=== PATIENT | female | born 1985 | race Caucasian/White ===

== ENCOUNTER 2022-04-19 09:55 | Emergency (ER) | payer OTHER, SELFPAY ==
[2022-04-19 10:25] VITALS: BP 113/63; PULSE 109; RESP 16; TEMP 37.2; O2SAT 100
[2022-04-19 11:05] LABS: Appearance Urine Cloudy (Clear); Bilirubin Urine Negative (Negative); Blood Urine 1+ (Negative); Color Urine Yellow (Yellow); Glucose Urine UA Negative (Negative); Ketones Urine Negative (Negative); Leukocyte Esterase Ur 2+ LEU/UL (Negative); Nitrate Urine Positive (Negative); Protein Urine 2+ mg/dL (Negative); Urobilinogen Urine 0.2 mg/dL (<2.0); pH Urine 6.5 (5.0-9.0)
[2022-04-19 11:13] LABS: Budding Yeast Urine Present /hpf; Mucus Urine Rare /lpf; Squamous Epithelial Cell Urine Few /hpf (Few); WBC Urine >75 /hpf
[2022-04-19 11:15] LABS: Basophils Percent Auto 0.1 % (0.2-1.2); Hematocrit 36.1 % (37.0-47.0); Hemoglobin 11.6 g/dL (12.0-15.0); Immature Granulocyte Absolute 0.06 K/mm3 (0.00-0.031); Immature Granulocyte Percent A 0.3 % (0-0.5); Lymphocytes Absolute Auto 1.09 K/mm3 (0.9-3.2); Lymphocytes Percent Auto 5.5 % (18.3-44.2); Mean Corpuscular HGB Conc 32.1 g/dl (32-36); Mean Corpuscular Hemoglobin 26.4 pg (26-34); Mean Corpuscular Volume 82.2 fl (80-100); Mean Platelet Volume 10.1 fl (7.4-10.4); Monocytes Absolute Auto 2.5 K/mm3 (0.1-0.6); Monocytes Percent Auto 12.5 % (2.6-8.5); Neutrophils Percent Auto 81.6 % (45.5-73.1); Platelet Count Result 218 k/mm3 (150-375); Red Blood Count 4.39 M/mm3 (4.2-5.4); Red Cell Distribution Width 15.3 % (11.5-14.5); White Blood Count 19.6 K/mm3 (4.5-10.0)
[2022-04-19 11:15] LABS: Add Urine Microscopic? YES
[2022-04-19 11:23] LABS: Alanine Aminotransferase 28 U/L (6-35); Albumin Level 4.4 g/dL (3.5-5.1); Alkaline Phosphatase 89 U/L (38-126); Anion Gap 6 mmol/L (8-16); Aspartate Amino Transferase 32 U/L (14-36); Bilirubin,Total 0.7 mg/dL (0.2-1.3); Blood Urea Nitrogen 12 mg/dL (7-17); Carbon Dioxide 31 mmol/L (22-30); Chloride 98 mmol/L (98-107); Estimated CRCL calculation 76 ml/min; Estimated Glomerular Filt Rate > 60; Glucose 109 mg/dL (65-110); Lipase 20 U/L (23-300); Potassium 3.5 mmol/L (3.4-5.0); Sodium 135 mmol/L (137-145)
--- NOTE | 2022-04-19 11:24 | ED.ABDPAIN ---
HPI - Abdominal Pain General Chief Complaint: Abdominal Pain Stated Complaint: R sided rib pain, no injury/trauma Time Seen by Provider: 04/19/22 11:00 History of Present Illness HPI narrative: 36-year-old female presented to the emergency department for evaluation of right flank pain and burning with urination. Patient states that the symptoms started yesterday and have progressed throughout the day today. Patient describes having subjective fever overnight. Patient denies any associated nausea vomiting or diarrhea. Patient denies any chest pain or shortness of breath. Patient states she does have a history of urinary tract infections. Patient reports in 2015 she was diagnosed with kidney failure but did not have follow-up until 2019 when she needed to be admitted for kidney issues . She states that she was hospitalized but had to leave [facility] and has not yet had follow up in since 2019. Related Data Allergies Allergy/AdvReac Type Severity Reaction Status Date / Time No Known Allergies Allergy Mild Unverified 09/06/06 18:40 Review of Systems Review of Systems: CONSTITUTIONAL: Denies fever, chills, or sweats. EYES: Denies visual changes, redness, or discharge. ENT: Denies rhinorrhea, congestion, sore throat, or otalgia. CARDIOVASCULAR: Denies chest pain, palpitations, or edema. RESPIRATORY: Denies cough or dyspnea. GASTROINTESTINAL: See HPI GENITOURINARY: See HPI SKIN: Denies rash or itching. MUSCULOSKELETAL: Denies back pain, joint pain, or myalgia. NEUROLOGIC: Denies headache, numbness, or weakness. Exam Narrative: APPEARANCE: Well appearing, no pain, no distress, well-nourished. HEAD: normocephalic, atraumatic. EYES: PERRLA/EOMI, conjunctivae clear. NOSE: Normal no drainage NECK: Supple. No adenopathy, no masses. RESPIRATORY: Airway patent, respirations nonlabored. Clear to auscultation bilaterally, no rales, rhonchi, wheezing. CARDIOVASCULAR: Regular rate and rhythm without murmurs rubs or gallops. ABDOMINAL: Right sided and suprapubic tenderness to palpation. Right CVA tenderness to palpation. MUSCULOSKELETAL: Moves all extremities. Strength/ROM intact, No edema, No calf tenderness. NEURO: Alert. Cranial nerves II through XII intact. Grossly intact SKIN: Warm, dry. Normal Color Course Course Emergency Course: Patient was treated for urinary tract infection with Rocephin. Urine culture is pending. Patient does have a leukocytosis of 19.6. Kidney function is within normal limits. Creatinine is 0.7. Patient does feel improved with treatment. Patient was encouraged to have close follow-up with her primary care physician. All questions concerns were addressed. Patient denies any associated nausea or vomiting. Patient tolerating p.o. Patient is afebrile suitable for discharge to home. Patient was educated on reasons to return to the emerge department. Vital Signs Vital signs: Vital Signs Temperature 99.0 F 04/19/22 10:25 Pulse Rate 109 H 04/19/22 10:25 Respiratory Rate 16 04/19/22 10:25 Blood Pressure 113/63 04/19/22 10:25 Pulse Oximetry 100 04/19/22 10:25 Oxygen Delivery Room Air 04/19/22 10:25 Temperature 99.0 F 04/19/22 10:25 Pulse Rate 87 04/19/22 12:48 Respiratory Rate 18 04/19/22 12:48 Blood Pressure 104/58 L 04/19/22 12:48 Pulse Oximetry 98 04/19/22 12:48 Oxygen Delivery Room Air 04/19/22 10:25 MDM - Abdominal Pain Lab Data Attestation: I reviewed the patient's lab results. Result diagrams: 04/19/22 11:01 04/19/22 11:01 Labs: Lab Results 04/19/22 04/19/22 04/19/22 Range/Units 11:00 11:01 11:01 WBC 19.6 H (4.5-10.0) K/mm3 RBC 4.39 (4.2-5.4) M/mm3 Hgb 11.6 L (12.0-15.0) g/dL Hct 36.1 L (37.0-47.0) % MCV 82.2 (80-100) fl MCH 26.4 (26-34) pg MCHC 32.1 (32-36) g/dl RDW 15.3 H (11.5-14.5) % Plt Count 218 (150-375) k/mm3 MPV 10.1 (7.4-10.4) fl Immature Gran % (Auto)
[2022-04-19] MEDS: SODIUM CHLORIDE 0.9% IV 1,000 ML 999 ML IV CONT (11:46)
[2022-04-19] MEDS: MORPHINE SULFATE (*CRX) 4 MG/ML INJ IV PUSH (11:47)
[2022-04-19] MEDS: PHENAZOPYRIDINE HCL 100 MG TABLET 200 MG PO (12:47)
[2022-04-19 12:48] VITALS: BP 104/58; PULSE 87; RESP 18; O2SAT 98
== END 2022-04-19 13:15 | disposition home or self-care (01) ==
PROVIDERS: Emergency Medicine; Emergency Provider Emergency Medicine
DX: N39.0 Urinary tract infection, site not specified (principal); Z87.440 Personal history of urinary (tract) infections
CPT/HCPCS: 36415; 80053; 81001; 81025; 83690; 85025; 87077; 87086; 87186; 96365; 96375; 99284; A9270; J0696; J2270; J7030

== ENCOUNTER 2022-05-26 07:46 | Emergency (ER) | payer OTHER, SELFPAY ==
--- NOTE | ~2022-05-26 | CT_ITS ---
EXAMINATION: CT abdomen pelvis w con DATE: 05/26/2022 10:13 INDICATION: Abdominal pain TECHNIQUE: Computed tomography (CT) of the abdomen and pelvis was performed with 100 CC Omnipaque 300 intravenous contrast. Automated exposure control and iterative reconstruction technique were employe d. Exam dose: 209.12 mGy-cm total exam DLP. COMPARISON: None. FINDINGS: The lung bases are clear. Normal heart size. No pericardial or pleural effusion. The gallbladder is present. No gallbladder wall thickening or pericholecystic fluid or fat stranding. No bile duct dilatation is noted. No hepatic, splenic, pancreatic space-occupying mass lesion or graf creatic duct dilatation. Normal morphology of the adrenal glands. 7 mm left renal cyst. No other renal space-occupying mass lesion is noted. There is subtle diminished enhancement in the lateral upper aspect of the right kidney; consider pyel onephritis. No urinary tract calculus or hydroureteronephrosis. The urinary bladder is evacuated. The appendix is dilated up to 1.3 cm, with thickening of the wall and periappendiceal fat stranding, consistent with acute appendicitis. There is a prominent amount of fecal material within the colon. No bowel obstruction or intraperitone al free air is detected. Retroverted uterus. There is moderately fluid in the adnexal areas and posterior cul-de-sac. There is an up to 1.2 cm dilated tubular structure, primarily the right fallopian tube consistent with hydros alpinx. Peripherally enhancing 12 x 19 mm probable involuting right ovarian cyst. 1.7 x 1.9 cm left ovarian cyst. Normal caliber of the abdominal aorta. No intraperitoneal or retroperitoneal or pelvic mass lesion or adenopathy is noted. Included skeletal structures are unremarkable. IMPRESSION: Acute appendicitis Right hydrosalpinx. Bilateral ovarian cysts Moderate free fluid in the adnexal areas and posterior cul-de-sac Possible mild pyelonephritis upper pole of right kidney 7 mm left renal cyst Retroverted uterus Reviewed, dictated and finalized at [facility]. Reviewed, dictated and finalized at [facility].
[2022-05-26 07:57] VITALS: BP 140/80; PULSE 63; RESP 20; TEMP 36.7; O2SAT 98
--- NOTE | 2022-05-26 08:05 | PC.NURSE ---
attempted to stick pt. for iv. unsuccessful.
--- NOTE | 2022-05-26 08:42 | ED.ABDPAIN ---
HPI - Abdominal Pain General Chief Complaint: Abdominal Pain Stated Complaint: abdominal pain Time Seen by Provider: 05/26/22 08:39 Source: patient and RN notes reviewed Mode of arrival: ambulatory Limitations: no limitations History of Present Illness HPI narrative: 36 years old white female came from home with her boyfriend complaining of generalized, diffuse abdominal pain started last night, constant associated with nausea, she denies any fever, chills, vomiting, diarrhea, constipation, vaginal bleeding or discharge, any history of abdominal surgery in the past, positive smoking, does not drink or uses drugs. Related Data Allergies Allergy/AdvReac Type Severity Reaction Status Date / Time No Known Allergies Allergy Mild Unverified 09/06/06 18:40 Review of Systems Review of Systems: All systems reviewed & are unremarkable except as noted in HPI and below Exam Narrative: General appearance: Well-developed, well-nourished, looks ill, toxic, lethargic Skin: Normal color Head: Normocephalic, nontraumatic Eyes: Clear conjunctiva ENT: Oropharynx normal, ears normal, nose normal Neck: Supple, nontender Chest and respiratory: Airway patent, no respiratory distress, no accessory muscle use Heart: Regular rate/rhythm Abdomen: Rigid, diffuse abdominal tenderness, positive guarding, no organomegaly, quiet bowel sounds Vascular: Normal peripheral pulses, normal capillary refill. Musculoskeletal: Normal range of motion, nontender back Neurologic: Alert and oriented ?3, EQUALIZER OPERATOR is normal as tested, no gross motor deficit Course Course Emergency Course: PID, pyelonephritis my concern. Patient looks sick, toxic, IV CEFOTETAN to 10, oral doxycycline ordered Consultations Consultation #1: Dr. Harden Date: 05/26/22 Time: 11:35 Time: 11:35 Vital Signs Vital signs: Vital Signs Temperature 36.7 C 05/26/22 07:57 Pulse Rate 63 05/26/22 07:57 Respiratory Rate 20 05/26/22 07:57 Blood Pressure 140/80 05/26/22 07:57 Pulse Oximetry 98 05/26/22 07:57 Temperature 36.7 C 05/26/22 07:57 Pulse Rate 89 05/26/22 10:45 Respiratory Rate 19 05/26/22 10:45 Blood Pressure 106/85 05/26/22 10:45 Pulse Oximetry 99 05/26/22 10:45 MDM - Abdominal Pain Differential Diagnosis Differential diagnosis: Likely abdominal pain, acute appendicitis, calculus of kidney, constipation, diverticulitis and pancreatitis Lab Data Result diagrams: 05/26/22 08:51 05/26/22 08:51 Labs: Lab Results 05/26/22 05/26/22 05/26/22 Range/Units 08:51 08:51 09:49 WBC 17.0 H (4.5-10.0) K/mm3 RBC 4.65 (4.2-5.4) M/mm3 Hgb 12.2 (12.0-15.0) g/dL Hct 38.7 (37.0-47.0) % MCV 83.2 (80-100) fl MCH 26.2 (26-34) pg MCHC 31.5 L (32-36) g/dl RDW 15.7 H (11.5-14.5) % Plt Count 208 (150-375) k/mm3 MPV 9.8 (7.4-10.4) fl Immature Gran % (Auto) 0.4 (0-0.5) % Neut % (Auto) 87.1 H (45.5-73.1) % Lymph % (Auto) 4.8 L (18.3-44.2) % Bland % (Auto) 7.3 (2.6-8.5) % Eos % (Auto) 0.1 (0-4.4) % Baso % (Auto) 0.3 (0.2-1.2) % Lymph # (Auto) 0.81 L (0.9-3.2) K/mm3 Bland # (Auto) 1.3 H (0.1-0.6) K/mm3 Eos # (Auto) 0.0 (0-0.3) K/mm3 Baso # (Auto) 0.1 (0.0-0.1) K/mm3 Abs Immat Gran (auto) 0.06 H (0.00-0.031) K/mm3 Absolute Neuts (auto) 14.9 H (1.3-6.7) K/mm3 Absolute Nucleated RBC 0.0 (0.0-0.012) K/mm3 Nucleated RBC % 0.0 (0.0-0.2) % Sodium 133 L (137-145) mmol/L Potassium 4.2 (3.4-5.0) mmol/L Chloride 104 (98-107) mmol/L Carbon Dioxide 26 (22-30) mmol/L Anion Gap 3 L (8-16) mmol/L BUN 10 (7-17) mg/dL Creatin
[2022-05-26 08:57] LABS: Basophils Absolute Auto 0.1 K/mm3 (0.0-0.1); Basophils Percent Auto 0.3 % (0.2-1.2); Eosinophils Percent Auto 0.1 % (0-4.4); Hematocrit 38.7 % (37.0-47.0); Hemoglobin 12.2 g/dL (12.0-15.0); Immature Granulocyte Absolute 0.06 K/mm3 (0.00-0.031); Immature Granulocyte Percent A 0.4 % (0-0.5); Lymphocytes Absolute Auto 0.81 K/mm3 (0.9-3.2); Lymphocytes Percent Auto 4.8 % (18.3-44.2); Mean Corpuscular HGB Conc 31.5 g/dl (32-36); Mean Corpuscular Hemoglobin 26.2 pg (26-34); Mean Corpuscular Volume 83.2 fl (80-100); Mean Platelet Volume 9.8 fl (7.4-10.4); Monocytes Absolute Auto 1.3 K/mm3 (0.1-0.6); Monocytes Percent Auto 7.3 % (2.6-8.5); Neutrophils Absolute Auto 14.9 K/mm3 (1.3-6.7); Neutrophils Percent Auto 87.1 % (45.5-73.1); Platelet Count Result 208 k/mm3 (150-375); Red Blood Count 4.65 M/mm3 (4.2-5.4); Red Cell Distribution Width 15.7 % (11.5-14.5)
[2022-05-26 09:17] LABS: Alanine Aminotransferase 30 U/L (6-35); Albumin Level 4.1 g/dL (3.5-5.1); Alkaline Phosphatase 89 U/L (38-126); Anion Gap 3 mmol/L (8-16); Aspartate Amino Transferase 44 U/L (14-36); Bilirubin,Total 0.7 mg/dL (0.2-1.3); Blood Urea Nitrogen 10 mg/dL (7-17); Calcium 8.7 mg/dL (8.4-10.2); Carbon Dioxide 26 mmol/L (22-30); Chloride 104 mmol/L (98-107); Estimated CRCL calculation 112 ml/min; Estimated Glomerular Filt Rate > 60; Glucose 122 mg/dL (65-110); Lipase 15 U/L (23-300); Potassium 4.2 mmol/L (3.4-5.0); Sodium 133 mmol/L (137-145)
[2022-05-26 09:35] VITALS: BP 130/80; PULSE 66; RESP 14; O2SAT 100
[2022-05-26 09:57] LABS: Add Urine Microscopic? YES; Appearance Urine Slightly Cloudy (Clear); Bilirubin Urine Negative (Negative); Blood Urine Negative (Negative); Color Urine Yellow (Yellow); Glucose Urine UA Negative (Negative); Ketones Urine 2+ mg/dL (Negative); Leukocyte Esterase Ur Trace LEU/UL (Negative); Nitrate Urine Positive (Negative); Protein Urine Trace mg/dL (Negative); pH Urine 8.5 (5.0-9.0)
[2022-05-26] MEDS: SODIUM CHLORIDE 0.9% IV 1,000 ML 999 ML IV CONT (10:00)
[2022-05-26 10:02] LABS: Bacteria Urine Trace /hpf; Mucus Urine Rare /lpf; RBC Urine 0-2 /hpf (0-2); Squamous Epithelial Cell Urine Few /hpf (Few)
--- NOTE | 2022-05-26 10:42 | PC.NURSE ---
pt. requesting std checks. erp made aware.
[2022-05-26 10:45] VITALS: BP 106/85; PULSE 89; RESP 19; O2SAT 99
[2022-05-26 11:02] VITALS: PULSE 69; RESP 13
--- NOTE | 2022-05-26 11:45 | PC.NURSE ---
Pt seen ambulating out of [facility] bay at this time. RN able to stop pt and remove her iv. ERP dr. Lizama aware.
--- NOTE | 2022-05-26 12:05 | PC.NURSE ---
1105- Pt admittedly requesting to use phone, pt escorted to phone. Informed patient that if desiring to leave ED, will need to sign AMA forms and IV needs to be discontinued. 1110- Pt states she will not be able to stay and persistently requesting to use phone. Dr. Lizama notified that pt desiring to leave. 1125- Dr. Lizama at bedside, discussed pt recommendation to stay for IV antibiotics, risk for worsening condition and possible , pt states she is not leaving, did not want to sign AMA forms. 1140- Pt requesting to look in [facility] for car, walked to ambulance bay door [facility]. Pt states she does not want to leave but would like [facility]. Informed pt if desiring to leave ED, will need to remove IV and sign AMA form. Pt became verbally aggressive and demanded to go into ambulance bay. Pt followed to ambulance bay and IV discontinued. Dr. Lizama notified, Dr. Lizama to [facility] for recommendation to stay in ED and be treated, pt found to have appendicitis and requires surgical intervention for conidition. Pt aware of risk. Pt discharged from care to [facility].
== END 2022-05-26 12:10 | disposition left against medical advice (07) ==
PROVIDERS: Emergency Provider Emergency Medicine
DX: N12 Tubulo-interstitial nephritis, not specified as acute or chronic (principal); N73.0 Acute parametritis and pelvic cellulitis; N83.202 Unspecified ovarian cyst, left side; N83.201 Unspecified ovarian cyst, right side; K35.80 Unspecified acute appendicitis
CPT/HCPCS: 36415; 74177; 80053; 81001; 81025; 83690; 85025; 87077; 87086; 87088; 87186; 96360; 99284; J7030; Q9967

== ENCOUNTER 2022-05-26 12:36 | Observation (INO) | payer OTHER, SELFPAY ==
[2022-05-26] VITALS (14 sets, daily range): BP systolic 82–110; BP diastolic 52–70; PULSE 50–95; RESP 14–22; TEMP 36.1–36.8; O2SAT 95–100; BMI 22.3
--- NOTE | 2022-05-26 12:40 | ED.ABDPAIN ---
HPI - Abdominal Pain General Chief Complaint: Abdominal Pain Stated Complaint: abdominal pain Time Seen by Provider: 05/26/22 12:40 Related Data Allergies Allergy/AdvReac Type Severity Reaction Status Date / Time No Known Allergies Allergy Mild Unverified 09/06/06 18:40 Discharge Plan Discharge Instructions: Antibiotic Form Prescriptions: No Action cephalexin 250 mg capsule 250 mg PO Q6H 7 Days Qty: 28 0RF phenazopyridine [Pyridium] 100 mg tablet 100 mg PO TID PRN (Reason: pain) Qty: 6 0RF Follow-up/Referrals: PHYSICIAN,FRAME OPENER [Primary Care Provider] -
--- NOTE | 2022-05-26 12:44 | ED.ABDPAIN ---
HPI - Abdominal Pain General Chief Complaint: Abdominal Pain Stated Complaint: abdominal pain Time Seen by Provider: 05/26/22 12:40 Source: patient Mode of arrival: ambulatory Limitations: no limitations History of Present Illness HPI narrative: 36 years old white female was seen by me earlier and left AMA with a diagnosis of acute appendicitis, pyelonephritis and possible PID. Patient is back because her pain got worse. Last meal was last night. Related Data Allergies Allergy/AdvReac Type Severity Reaction Status Date / Time No Known Allergies Allergy Mild Verified 05/26/22 14:30 Review of Systems Review of Systems: All systems reviewed & are unremarkable except as noted in HPI and below PMFSH Social History Social History Smoking packs per day: 1 Smoking cigarettes per day: 20.0 Years smoked: 15 Smoking pack-years: 15.00 Smoking status: Current every day smoker Tobacco type: cigarettes Gender identity (if verbalized by the patient): Female Sexual Orientation (if Verbalized by the Patient): Straight or Heterosexual Spiritual care concerns: No Exam Narrative: General appearance: Well-developed, well-nourished, very L Skin: Normal color Head: Normocephalic, nontraumatic Eyes: Clear conjunctiva ENT: Oropharynx normal, ears normal, nose normal Neck: Supple, nontender Chest and respiratory: Airway patent, no respiratory distress, no accessory muscle use Heart: Regular rate/rhythm Abdomen: Severe diffuse tenderness mainly right lower quadrant with guarding and rebound, no organomegaly, quiet bowel sounds Vascular: Normal peripheral pulses, normal capillary refill. Musculoskeletal: Normal range of motion, nontender back Neurologic: Alert and oriented ?3, PHOTOGRAPHIC ENLARGER OPERATOR is normal as tested, no gross motor deficit Course Course Emergency Course: Admit to surgery, appendicitis. Consultations Consultation #1: Dr. Troncoso Admit to hospitalist because of the pyelonephritis Date: 05/26/22 Time: 13:14 Vital Signs Vital signs: Vital Signs Temperature 36.8 C 05/26/22 13:05 Pulse Rate 95 05/26/22 13:05 Respiratory Rate 15 05/26/22 13:05 Blood Pressure 103/63 05/26/22 13:05 Pulse Oximetry 96 05/26/22 13:05 Oxygen Delivery Room Air 05/26/22 13:05 Temperature 36.4 C 05/26/22 18:51 Pulse Rate 53 L 05/26/22 18:51 Respiratory Rate 16 05/26/22 18:51 Blood Pressure 95/56 L 05/26/22 18:51 Pulse Oximetry 99 05/26/22 18:51 Oxygen Delivery Room Air 05/26/22 16:50 Oxygen Flow Rate 8 05/26/22 16:20 MDM - Abdominal Pain Differential Diagnosis Differential diagnosis: Likely acute appendicitis Critical Care Time Critical Care Time Critical Care Time: Yes Total Critical Care Time: 30 Discharge Plan Discharge Clinical Impression: Pyelonephritis, Acute pelvic inflammatory disease (PID), Acute appendicitis, Ovarian cyst, Hydrosalpinx Patient Disposition: Still a Patient Condition: Stable
--- NOTE | 2022-05-26 13:28 | WPDANESEPPF ---
Anes - Initial Pre Proc Eval Procedure: Operation Date: 05/26/22 14:30 Proposed Procedures p Laparoscopic Appendectomy - Ollie Troncoso MD Date/Time: 05/26/22 13:28 Surgeon: Ollie Troncoso MD Pre Op Diagnosis: abdominal pain Patient Data Age: 36 Gender: F Height: 1.63 m Weight: 59 kg Last Vital Signs Temp 36.8 C 05/26/22 13:05 Pulse 95 05/26/22 13:05 Resp 15 05/26/22 13:05 BP 103/63 05/26/22 13:05 Pulse Ox 96 05/26/22 13:05 O2 Del Method Room Air 05/26/22 13:05 Allergies Allergy/AdvReac Type Severity Reaction Status Date / Time No Known Allergies Allergy Mild Verified 05/26/22 13:10 Home Medications Medication Instructions Recorded Confirmed Type cephalexin 250 mg capsule 250 mg PO Q6H 7 days #28 caps 04/19/22 Rx phenazopyridine 100 mg tablet 100 mg PO TID PRN pain 6 doses #6 04/19/22 Rx (Pyridium) tabs Other studies: EXAMINATION: CT abdomen pelvis w con DATE: 05/26/2022 10:13 INDICATION: Abdominal pain TECHNIQUE: Computed tomography (CT) of the abdomen and pelvis was performed with 100 CC Omnipaque 300 intravenous contrast. Automated exposure control and iterative reconstruction technique were employed. Exam dose:? 209.12 mGy-cm total exam DLP.? COMPARISON: None. FINDINGS: The lung bases are clear. Normal heart size. No pericardial or pleural effusion. The gallbladder is present. No gallbladder wall thickening or pericholecystic fluid or fat stranding. No bile duct dilatation is noted. No hepatic, splenic, pancreatic space-occupying mass lesion or pancreatic duct dilatation. Normal morphology of the adrenal glands. 7 mm left renal cyst. No other renal space-occupying mass lesion is noted. There is subtle diminished enhancement in the lateral upper aspect of the right kidney; consider pyelonephritis. No urinary tract calculus or hydroureteronephrosis. The urinary bladder is evacuated. The appendix is dilated up to 1.3 cm, with thickening of the wall and periappendiceal fat stranding, consistent with acute appendicitis. There is a prominent amount of fecal material within the colon. No bowel obstruction or intraperitoneal free air is detected. Retroverted uterus. There is moderately fluid in the adnexal areas and posterior cul-de-sac. There is an up to 1.2 cm dilated tubular structure, primarily the right fallopian tube consistent with hydrosalpinx. Peripherally enhancing 12 x 19 mm probable involuting right ovarian cyst. 1.7 x 1.9 cm left ovarian cyst. Normal caliber of the abdominal aorta. No intraperitoneal or retroperitoneal or pelvic mass lesion or adenopathy is noted. Included skeletal structures are unremarkable. IMPRESSION:? Acute appendicitis Patient hx anesthesia problems: none Family hx anesthesia problems: none Results Review: All pre-operative results and documents have been reviewed as part of the pre-operative evaluation. Anes - Eval Final PreProcedure Day of Procedure 05/26/22 13:28 Patient weight: normal Heart: regular rate and rhythm Lungs: clear to auscultation and normal air movement Airway: Mallampati scale class II Neurological: alert and oriented Last oral intake: >/= 8 hours ASA classification: II Emergent: no Anesthetic plan: proceed Anesthesia type and monitoring: general ETT Results Review: All pre-operative results and documents have been reviewed as part of the pre-operative evaluation. Informed Consent: The patient's anesthetic plan and its attendant risks and benefits were discussed with the patient/family/POA. Questions were solicited and answers provided to the satisfaction of the patient/family/POA.
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
--- NOTE | 2022-05-26 13:56 | WPDHPUPDATE1 ---
History and Physical Update Update Date/Time: 05/26/22 13:56 History and Physical has been reviewed, including an updated exam of the patient. There are NO changes in the patient's condition. Risks, benefits, and alternatives have been discussed and questions answered. Patient agrees to proceed with procedure.
--- NOTE | 2022-05-26 13:57 | PM.CNGS ---
Assessment and Plan Assessment and plan (1) Acute appendicitis: Code(s): K35.80 - Unspecified acute appendicitis Status: Acute Assessment and Plan: Seems to be a mixed picture with more than 1 thing going on but patient is definitely tender in the right lower quadrant with CT scan evidence of acute appendicitis. Will proceed with laparoscopic appendectomy. The procedure the risks the benefits have been discussed with the patient. She will be admitted after surgery for treatment of pyelonephritis and possibly PID. All questions were answered. She understands and agrees to go ahead. (2) Pyelonephritis: Code(s): N12 - Tubulo-interstitial nephritis, not specified as acute or chronic Status: Acute Assessment and Plan: Noted on CT scan and patient does have trace bacteria with a few white cells in her urine. Management per hospitalist service. (3) Acute pelvic inflammatory disease (PID): Code(s): N73.0 - Acute parametritis and pelvic cellulitis Status: Acute Assessment and Plan: Right hydrosalpinx on CT scan. Could be secondary to adjacent appendiceal inflammation or could also have PID. Will be on antibiotics postop History of Present Illness Consult details Consult date: 05/26/22 Reason for consult: abdominal pain Requesting physician: Charles Lizama MD Narrative: Patient is a 36-year-old woman who came to the emergency room this morning complaining of diffuse abdominal pain that started last night about 6:00. The pain since moved to the lower abdomen, both sides. In the ER, [place] [id number] and was diffusely tender with guarding. She had a CT scan which showed acute appendicitis. There was also a concern regarding pelvic inflammatory disease as well as pyelonephritis. Patient then left AMA but came back in just a couple of hours as she was continuing to have pain. She is most tender in RLQ and very uncomfortable. Last menses was 1 week ago. She is now taken to surgery for laparoscopic appendectomy for acute appendicitis. Review of Systems Review of Systems: All systems reviewed & are unremarkable except as noted in HPI and below (HPI) Constitutional: Constitutional: Denies body ache(s), Denies chills, Reports fatigue, Denies fever(s) and Reports poor appetite Cardiovascular: Cardiovascular: Denies chest pain, Denies diaphoresis, Denies dyspnea and Denies paroxysmal nocturnal dyspnea Respiratory: Respiratory: Denies chest congestion, Denies cough and Denies dyspnea Gastrointestinal: Gastrointestinal: Reports as per HPI, Reports abdominal pain and Reports nausea Genitourinary: Genitourinary: Reports pelvic pain Comments: Patient had similar pain when she was in the emergency room in early April. This did resolve but then came back again last evening. Integumentary/Breasts: Skin/Breast: Denies lesions and Denies rash Meds Home Medications and Allergies Home Medications Medication Instructions Recorded Confirmed Type cephalexin 250 mg capsule 250 mg PO Q6H 7 days #28 caps 04/19/22 Rx phenazopyridine 100 mg tablet 100 mg PO TID PRN pain 6 doses #6 04/19/22 Rx (Pyridium) tabs Allergies Allergy/AdvReac Type Severity Reaction Status Date / Time No Known Allergies Allergy Mild Verified 05/26/22 14:30 Vital Signs Vital Signs - 24 hr 05/26/22 13:05 05/26/22 13:39 Temperature 36.8 C Pulse Rate 95 85 Respiratory Rate 15 16 Blood Pressure 103/63 103/67 Pulse Oximetry 96 100 Oxygen Delivery Room Air Exam Const: General: cooperative, no acute distress, awake, anxious, ill appearing, tired appearing and uncomfortable Nutritional Appearance: thin Other: Closes eyes intermittently like she is trying to think of something or possibly about to fall asleep HENMT: Head: normocephalic and atraumatic Mouth: Yes Normal oral and palatal mucosa present Eyes: Conjunctivae: conjunctivae normal Pupils: Equal, round and
[2022-05-26] MEDS: LACTATED RINGERS 1,000 ML 30 ML IV CONT (14:00)
[2022-05-26] MEDS: ceFAZolin 2 GM/D5W 50 ML 2 GM/50 ML BAG IVPB (14:24)
--- NOTE | 2022-05-26 14:35 | SUR.PREOP ---
1333- PT CAME FROM ED ON STRETCHER. PT VERY DROWSY, FALLING ALSLEEP WHILE TALKING. ONLY GIVEN IV TYLENOL IN ED. PT DENIES TAKING ANY OTHER MEDICATIONS TODAY. PT ABLE TO GET UP TO RESTROOM X 1 ASSIST. PT BOYFRIEND UPDATED BY PHONE. PT LEFT HAND, FOOT AND EYELID HAS SWELLING. PT STATED IT HAS BEEN LIKE THIS ON AND OFF. SHE WAS NOT SURE WHAT CAUSED IT. VERY MILD SWELLING IN IN RIGHT HAND. ALL JEWELRY REMOVED AND PLACED IN PURSE. RIGHT FA PIV PATENT. SITE FREE OF REDNESS OR SWELLING. PT STATED SHE WAS DX WITH A UTI OVER A MONTH AGO AND WAS PLACED ON ANTIBIOTICS. REPORT GIVEN TO OR STAFF AND MEAT COUNTER CLERK.
[2022-05-26] MEDS: BUPIVACAINE/EPINEPHRINE 0.25% 50 ML VIAL 30 ML INFILTRATE (14:49)
--- NOTE | 2022-05-26 15:29 | W.PM.PROC2 ---
Procedure Note - Detailed Date of Procedure 05/26/22 Pre-op Diagnosis Acute appendicitis Post-op Diagnosis Other (Acute appendicitis, bilateral hydrosalpinx, endometriosis) Procedure Performed Laparoscopic appendectomy Surgeon Ollie Troncoso MD Medical Billing And Coding Specialist [facility] Anesthesia General and Local (0.25% bupivacaine with epinephrine) Indications Patient presented to the emergency room with diffuse abdominal pain that started last night. She has had nausea with this as well. She is noted to have tenderness in the right lower quadrant. Her white blood cell count was elevated. CT scan showed acute appendicitis. It also showed possible pyelonephritis and right hydrosalpinx possibly PID. She is taken to surgery at this time for acute appendicitis. Findings Appendix was acutely inflamed but was not ruptured. There was right hydrosalpinx and to a lesser degree left hydrosalpinx. There were several endometrial implants in the pelvis. Multiple pictures were taken to document these findings. Please see the hard copy record. Description of Procedure Patient was taken to surgery and induced into general anesthesia. The abdomen is prepped and draped. Trocars were placed in usual fashion using 0.25% Marcaine with epinephrine and applied Medical optical trocars. 5 mm camera was used. Patient was placed in Trendelenburg with the right-side elevated. The appendix was found fairly easily. I brought the small bowel and sigmoid colon out of the pelvis. Right hydrosalpinx was easily seen. There were 2 endometrial implants in the area as well. A photograph of this was taken. A photograph of the appendix was taken. We then mobilized the appendix and began dissection in the mesoappendix. This was very edematous. Dissection was carried out and the appendiceal artery was found. It was dissected out as well. Appendiceal artery was then thoroughly cauterized and divided. We continued dissecting the mesoappendix and the base of the appendix free. The base the appendix was skeletonized by dividing the mesoappendix. A Vicryl endoloop was then used to ligate the appendix at its base. The appendix was amputated just above the ligature. The mucosa of the appendiceal stump was cauterized. The appendix was placed immediately in an Endo-Catch bag. It was extricated through the 10 11 left lower quadrant trocar site. We replaced the trocar and then reviewed the right lower quadrant. Suctioning of any residual blood and fluid was carried out. Some irrigation was carried out. All looked good with no evidence of bleeding or other problems. I then looked at the left tube. This appeared to have hydrosalpinx as well. A photograph of this was taken. On the left side of the uterus there was a fairly large area of endometriosis. This was also photographed. I again looked at the right tube and found the right ovary. It did appear to have a cyst associated with it. This was also photographed. I suction down any residual cloudy fluid in the pelvis. All looked good. We evacuated CO2 and removed the trocar sleeves. Skin wounds were closed with subcuticular 4-0 Monocryl skin suture. The wounds were dressed with Exofin surgical adhesive. Patient was awakened and taken to recovery in good condition. Sponge and needle counts were correct x2. Estimated Blood Loss -5 Drains No Packing No Pathology Yes (Appendix) Complications No immediate complications Condition Stable Disposition PACU [facility] Billing Surgery - Charge Forward: Surgery Billing (Laparoscopic appendectomy)
--- NOTE | 2022-05-26 17:55 | ADMGEN ---
This patient, Pina Jackman, was admitted to [facility] Surg Room 328-01 at 1715. Patient/family oriented to hospital policies and general routines including ID bracelet, bed and alarms, visiting hours, pain management, procedures, bathroom and other care routines, personal items, smoking policy, room service/diet, and visiting hours. Information on how to activate the Rapid Response Team has been discussed. Patient/Family are encouraged to report perceived risks to care and to ask questions if they do not understand what they are told or what they should do.
[2022-05-26] MEDS: LACTATED RINGERS 1,000 ML 80 ML IV CONT (18:17)
[2022-05-26] MEDS: DOXYCYCLINE 100 MG/NS 100 ML 100 MG/100 ML BAG IVPB (18:17)
--- NOTE | 2022-05-26 20:05 | PC.NURSE ---
Pt is alert and oriented x 3, capable of making her own decisions, and she called this nurse into her room. She wants to leave the hospital tonight, because she has 2 children at home alone, aged 15 and 10. She requested antibiotics to take with her. SUSIE Bose called the surgeon and provider both and they agreed that she should be kept to get medication; however, they will call antibiotics to her pharmacy for her pyelonephritis condition. Patient was educated at length by this nurse as well as Sparkle Mckenzie, Senior Security Architect about taking the antibiotics as instructed, as well as her need to return to the ER, should she encounter any complications. She was further instructed to follow up with her regular provider in a week. Pt agreed that she understood all instructions from both of us. I removed her IV access, and she has called a ride to pick her up. When that person arrives, we will take her out to meet them.
--- NOTE | 2022-05-26 21:00 | PC.NURSE ---
Pt left AMA at 2049
--- NOTE | 2022-06-28 19:59 | PM.EVENT ---
Event Note Event Note Event Note: I was informed that patient wanted to leave the hospital in view that patient had decision making capacity and did not represent a threat to self or others and has the right to leave the hospital however was AMA,antibiotics were called for the patient to picker packer at her pharmacy. I was not in charge of the care for this patient and never met with her.
== END 2022-05-26 20:50 | disposition left against medical advice (07) ==
LOC: ANHED 13:19 → ANHSURGERY 13:24 → ANH3MEDSUR 14:48
PROVIDERS: Admitting Provider Surgery; Emergency Provider Emergency Medicine; Visit Provider Surgery
PROC: 0DTJ4ZZ Resection of Appendix, Percutaneous Endoscopic Approach (ICD-10-PCS; CPT 44970; principal; 2022-05-26 14:30)
DX: K35.80 Unspecified acute appendicitis (principal); N70.11 Chronic salpingitis; N80.3 Endometriosis of pelvic peritoneum; R10.9 Unspecified abdominal pain; N12 Tubulo-interstitial nephritis, not specified as acute or chronic; N73.0 Acute parametritis and pelvic cellulitis; N83.209 Unspecified ovarian cyst, unspecified side; D72.829 Elevated white blood cell count, unspecified; F17.210 Nicotine dependence, cigarettes, uncomplicated; Z79.899 Other long term (current) drug therapy
CPT/HCPCS: 44970; 36415; 74177; 80053; 81001; 81025; 83690; 85025; 87077; 87086; 87088; 87186; 88304; 96360; 96374; 99284; 99285; J0131; J0330; J0690; J1100; J2250; J2405; J2704; J2710; J3010; J7030; J7120; Q9967

== ENCOUNTER 2025-02-09 01:32 | Emergency (ER) | payer OTHER, SELFPAY ==
[2025-02-09 01:33] VITALS: BP 113/57; PULSE 99; RESP 18; TEMP 37.2; O2SAT 99
--- OUTSIDE RECORDS SUMMARY | 2025-02-09 01:34 | XMS_ITS | Clinical Summary ---
Author Organization [facility] Address [address] [place] [id number] Care Team Providers Care Dancing Master Name Role Phone Unavailable Primary Care Provider Unavailabl e Social History Tobacco Use Types Packs/Day Years Used Date Smoking Tobacco: Never Assessed Comments Unknown Sex and Gender Information Value Date Recorded Sex Assigned at Not on file Legal Sex Female 4:48 PM CDT Gender Identity Not on file Sexual Orientation Not on file Last Filed Vital Signs Vital Sign Reading Time Taken Comments Blood Pressure 102/62 01/09/2015 6:46 PM SPECIAL SERVICES DIRECTOR Pulse 80 01/09/2015 6:46 PM SPECIAL SERVICES DIRECTOR Temperature - - Respiratory Rate - - Oxygen Saturation - - Inhaled Oxygen Concentration - - Weight - - Height - - Body Mass Index - - Plan of Treatment Health Maintenance Due Date Last Done Comments Cervical Cancer Screening Pa p Smear (Age 30 to 64) Every 3 Years 1985 Annual Physical 1988 Hepatitis C 2003 DTaP, Tdap and Td Vaccines ( 1 - Tdap) 2004 Hepatitis B Vaccines (1 of 3 - 19+ 3-dose series) 2004 Cervical Cancer Screening Pa p with HPV Testing (Age 30 to 64) Every 5 Years 2015 Cervical Cancer Screening with HPV 2015 COVID-19 Vaccine (2023-2 5 season) 2024 Influenza Adult (#1) 2024 HPV Vaccines Aged Out No longer eligi ble based on patient's age to complete this topic Meningococcal B Vaccine Aged Out No l onger eligible based on patient's age to complete this topic Meningococcal Vaccine Aged Out No adriana isidro eligible based on patient's age to complete this topic Pneumococcal Vaccine: Pediat rics (0 to 5 Years) and At-Risk Patients (6 to 64 Years) Aged Out No longer eligible b ased on patient's age to complete this topic RSV Immunizations Under 20 Months Aged Out No longer eligible based on patient's age to complete this topic
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
[2025-02-09 04:05] LABS: BEDSIDEPREGUCG Negative (Negative)
[2025-02-09 04:08] LABS: Add Urine Microscopic? YES; Appearance Urine Cloudy (Clear); Bacteria Urine 4+ /hpf; Bilirubin Urine Negative (Negative); Blood Urine 1+ (Negative); Color Urine Yellow (Yellow); Glucose Urine UA Negative (Negative); Ketones Urine Negative (Negative); Leukocyte Esterase Ur 3+ LEU/UL (Negative); Nitrate Urine Positive (Negative); Non Pathogenic Casts 0-2; Protein Urine 2+ mg/dL (Negative); RBC Urine 0-2 /hpf (0-2); Specific Grav Ur 1.011 (1.001-1.035); Squamous Epithelial Cell Urine None Seen /hpf (Few); WBC Urine >100 /hpf (0-3)
--- OUTSIDE RECORDS SUMMARY | 2025-02-09 04:42 | XMS_ITS | Clinical Summary ---
Author Organization [facility] Address [address] [place] [id number] Care Team Providers Care Technical Staff Engineer Name Role Phone Unavailable Primary Care Provider [...] Comments Blood Pressure 102/62 01/09/2015 6:46 PM [facility]RED[facility]ICKER Pulse 80 01/09/2015 6:46 PM [facility] Temperature - - Respiratory Rate - - [...]
--- NOTE | 2025-02-09 05:51 | ED_ITS ---
HPI - General Adult General Chief complaint: Urogenital-Female Stated complaint: think I have kidney infection Time Seen by Provider: 02/09/25 04:27 History of Present Illness HPI narrative: This is a 39-year-old female presenting with urinary symptoms and back pain. Symptoms started 2 days ago. Patient denies fevers nausea or vomiting. Patient uses methamphetamines and IV fentanyl. She has history of kidney failure but does not know any specifics and has not seen a doctor Related Data Allergies Allergy/AdvReac Type Severity Reaction Status Date / Time No Known Allergies Allergy Mild Verified 05/26/22 14:30 [facility] Social History Social History Smoking packs per day: 1 Smoking cigarettes per day: 20.0 Years smoked: 15 Smoking pack-years: 15.00 Smoking status: Current every day smoker Tobacco type: cigarettes Gender identity (if verbalized by the patient): Female Sexual Orientation (if Verbalized by the Patient): Straight or Heterosexual Spiritual care concerns: No Exam 2 Narrative: APPEARANCE: No apparent distress. Head: atraumatic. EYES: EOMI, NOSE: Atraumatic NECK: Trachea midline RESPIRATORY: No increased rate of breathing clear to auscultation CARDIOVASCULAR: RRR, soft no peripheral edema ABDOMINAL: Mild suprapubic tenderness, right CVA tenderness MUSCULOSKELETAl: No obvious deformities NEURO: Alert. Moving 4/4 extremities SKIN:: Thickened skin on the hands and forearms PSYCHIATRIC: Normal affect Course Vital Signs Vital signs: Vital Signs Temperature 98.9 F 02/09/25 01:33 Pulse Rate 99 02/09/25 01:33 Respiratory Rate 18 02/09/25 01:33 Blood Pressure 113/57 L 02/09/25 01:33 Pulse Oximetry 99 02/09/25 01:33 Oxygen Delivery Room Air 02/09/25 01:33 Temperature 98.9 F 02/09/25 01:33 Pulse Rate 98 02/09/25 06:22 Respiratory Rate 16 02/09/25 06:22 Blood Pressure 111/66 02/09/25 06:22 Pulse Oximetry 100 02/09/25 06:22 Oxygen Delivery Room Air 02/09/25 01:33 Medical Decision Making [facility] Narrative Medical decision making narrative: -Course: 39-year-old female history of IV fentanyl and methamphetamine abuse presenting urinary symptoms right flank pain. Urine indicative infection. Patient given dose of IV ceftriaxone. White count elevated. Patient has stable vital signs and is well appearing overall. Discussed admission versus outpatient treatment. Patient states that she will go into withdrawal if she is admitted and would rather not be admitted. She is supposed to go to multiple more old be into a rehab program today. I have stressed that if she is gets worse that she needs return to the ED immediately. She will be discharged on cefidinr. She has been given strict return precautions if her condition is to worsen. -DDX includes but is not limited to: Cystitis, pyelonephritis, sepsis, perinephric abscess -Co-morbidities complicating care: IV drug abuse Vital Signs Vital Signs: Vital Signs Temperature 98.9 F 02/09/25 01:33 Pulse Rate 99 02/09/25 01:33 Respiratory Rate 18 02/09/25 01:33 Blood Pressure 113/57 L 02/09/25 01:33 Pulse Oximetry 99 02/09/25 01:33 Oxygen Delivery Room Air 02/09/25 01:33 Temperature 98.9 F 02/09/25 01:33 Pulse Rate 98 02/09/25 06:22 Respiratory Rate 16 02/09/25 06:22 Blood Pressure 111/66 02/09/25 06:22 Pulse Oximetry 100 02/09/25 06:22 Oxygen Delivery Room Air 02/09/25 01:33 Lab Data 02/09/25 06:21 02/09/25 06:21 Labs: Lab Results 02/09/25 02/09/25 02/09/25 Range/Units 03:55 04:02 06:21 WBC 16.3 H (4.5-10.0) K/mm3 RBC 4.04 L (4.2-5.4) M/mm3 Hgb 11.5 L (12.0-15.0) g/dL Hct 35.8 L (37.0-47.0) % MCV 88.6 (80-100) fl MCH 28.5 (26-34) pg MCHC 32.1 (32-36) g/dl RDW 12.5 (11.5-14.5) % Plt Count 204 (150-375) k/mm3 MPV 9.5 (7.4-10.4) fl Immature Gran % (Auto) 0.3 (0-0.5) % Neut % (Auto) 84.5 H (45.5-73.1) % Lymph % (Auto) 6.0 L (18.3-44.2) % Dawson % (Auto) 9.0 H (2.6-8.5) % Eos % (Auto) 0.0 (0-4.4) % Baso % (Auto) 0.2 (0.2-1.2) % Lymph # (Auto) 0.97 (0.9-3.2) K/mm3 Dawson # (Auto) 1.5 H (0.1-0.6) K/mm3 Eos # (Auto) 0.0 (0-0.3) K/mm3 Baso # (Auto) 0.0 (0.0-0.1) K/mm3 Abs Immat Gran (auto) 0.05 H (0.00-0.031) K/mm3 Absolute Neuts (auto) 13.7 H (1.3-6.7) K/mm3 Absolute Nucleated RBC 0.000 (0.0-0.012) K/mm3 Nucleated RBC % 0.0 (0.0-0.2) % Sodium 132 L (137-145) mmol/L Potassium 3.4 (3.4-5.0) mmol/L Chloride 96 L (98-107) mmol/L Carbon Dioxide 29 (22-30) mmol/L Anion Gap 7 (4-12) mmol/L BUN 10 (7-17) mg/dL Creatinine 0.70 (0.7-1.0) mg/dL Estim Creat Clear Calc 90 ml/min Estimated GFR > 60 (59 - ) Glucose 144 H (65-110) mg/dL Calcium 8.6 (8.4-10.2) mg/dL Total Bilirubin 0.9 (0.2-1.3) mg/dL AST 29 (14-36) U/L ALT 25 (6-35) U/L Alkaline Phosphatase 82 (38-126) U/L Total Protein 7.0 (6.3-8.2) g/dL Albumin 3.9 (3.5-5.1) g/dL Urine Color Yellow (Yellow) Urine Appearance Cloudy H (Clear) Urine pH 8.0 (5.0-9.0) Ur Specific [place] 1.011 (1.001-1.035) Urine Protein 2+ H (Negative) mg/dL Urine Glucose (UA) Negative (Negative) mg/dL Urine Ketones Negative (Negative) mg/dL Ur Blood (Man) 1+ H (Negative) Urine Nitrate Positive H (Negative) Urine Bilirubin Negative (Negative) Urine Urobilinogen 2.0 H (<2.0) mg/dL Leukocyte Esterase Rfl 3+ H (Negative) ALICIA/UL Urine RBC 0-2 (0-2) /hpf Urine WBC >100 H (0-3) /hpf Ur Squamous Epith Cells None seen (Few) /hpf Urine Bacteria 4+ H /hpf Urine Casts 0-2 POC Urine HCG, Qual Negative (Negative) Discharge Plan Discharge Clinical Impression: Pyelonephritis Patient Disposition: Home, Self-Care Condition: Stable Instructions: Antibiotic Form, Kidney Infection (ED) Additional Instructions: You have a kidney infection. It is important that you take the antibiotics as instructed. If you feel that you are getting worse, you develop fevers intractable nausea vomiting or increased pain on white to return to the ED immediately. Please refrain from amphetamine abuse while you are recovering from r illness. Patient Language: Swedish Prescriptions: New cefdinir 300 mg capsule 300 mg PO Q12H Qty: 20 0RF No Action cephalexin 250 mg capsule 250 mg PO Q6H 7 Days Qty: 28 0RF phenazopyridine [Pyridium] 100 mg tablet 100 mg PO TID PRN (Reason: pain) Qty: 6 0RF Follow-up/Referrals: PHYSICIAN,CREATIVE PROJECT MANAGER [Primary Care Provider] -
[2025-02-09 06:22] VITALS: BP 111/66; PULSE 98; RESP 16; O2SAT 100
[2025-02-09 06:25] LABS: Basophils Percent Auto 0.2 % (0.2-1.2); Hematocrit 35.8 % (37.0-47.0); Hemoglobin 11.5 g/dL (12.0-15.0); Immature Granulocyte Absolute 0.05 K/mm3 (0.00-0.031); Immature Granulocyte Percent A 0.3 % (0-0.5); Lymphocytes Absolute Auto 0.97 K/mm3 (0.9-3.2); Mean Corpuscular HGB Conc 32.1 g/dl (32-36); Mean Corpuscular Hemoglobin 28.5 pg (26-34); Mean Corpuscular Volume 88.6 fl (80-100); Mean Platelet Volume 9.5 fl (7.4-10.4); Monocytes Absolute Auto 1.5 K/mm3 (0.1-0.6); Neutrophils Absolute Auto 13.7 K/mm3 (1.3-6.7); Neutrophils Percent Auto 84.5 % (45.5-73.1); Platelet Count Result 204 k/mm3 (150-375); Red Blood Count 4.04 M/mm3 (4.2-5.4); Red Cell Distribution Width 12.5 % (11.5-14.5); White Blood Count 16.3 K/mm3 (4.5-10.0)
[2025-02-09 06:35] LABS: Alanine Aminotransferase 25 U/L (6-35); Albumin Level 3.9 g/dL (3.5-5.1); Alkaline Phosphatase 82 U/L (38-126); Anion Gap 7 mmol/L (4-12); Aspartate Amino Transferase 29 U/L (14-36); Bilirubin,Total 0.9 mg/dL (0.2-1.3); Blood Urea Nitrogen 10 mg/dL (7-17); Calcium 8.6 mg/dL (8.4-10.2); Carbon Dioxide 29 mmol/L (22-30); Chloride 96 mmol/L (98-107); Estimated CRCL calculation 90 ml/min; Estimated Glomerular Filt Rate > 60; Glucose 144 mg/dL (65-110); Potassium 3.4 mmol/L (3.4-5.0); Sodium 132 mmol/L (137-145)
[2025-02-09 06:51] VITALS: BP 107/64; PULSE 100; RESP 16; O2SAT 97
[2025-02-09 06:57] LABS: Barbiturate Screen Urine Negative (Negative); Benzodiazepines Screen Urine Negative (Negative)
[2025-02-09 07:02] LABS: Cannabinoid Screen Urine Negative (Negative); Cocaine Screen Urine Negative (Negative); Methadone Screen Urine Negative (Negative); Opiate Screen Urine Negative (Negative); Phencyclidine Screen Urine Negative (Negative)
[2025-02-09 07:06] LABS: Amphetamine Screen Urine Positive (Negative)
== END 2025-02-09 06:52 | disposition home or self-care (01) ==
PROVIDERS: Emergency Provider Emergency Medicine
DX: N12 Tubulo-interstitial nephritis, not specified as acute or chronic (principal); F17.210 Nicotine dependence, cigarettes, uncomplicated; F15.10 Other stimulant abuse, uncomplicated; F11.10 Opioid abuse, uncomplicated
CPT/HCPCS: 36415; 80053; 80307; 81001; 81025; 85025; 87086; 87186; 96365; 99284; J0696